=== PATIENT | female | born 1975 | race Caucasian/White ===

== ENCOUNTER 2016-11-05 14:31 | Inpatient (IN) | payer OTHER ==
[~2016-11-05] VITALS: Ht 170.2 cm; Wt 77.3 kg
[2016-11-05 14:44] LABS: BASOPHILS % (AUTO) 0.3 % (0.0-2.0); EOSINOPHILS % (AUTO) 0.5 % (1.0-6.0); HEMATOCRIT 36.7 % (36-46); HEMOGLOBIN 11.6 g/dL (12.0-16.0); LYMPHOCYTES # (AUTO) 4.7 K/uL (1.0-4.8); LYMPHOCYTES % (AUTO) 21.7 % (22.0-44.0); MEAN CORPUSCULAR HEMOGLOBIN 28.5 pg (26.0-34.0); MEAN CORPUSCULAR HGB CONC 31.6 G/dL (31.0-37.0); MEAN CORPUSCULAR VOLUME 90 fL (80-100); MONOCYTES # (AUTO) 1.1 K/uL (0.1-1.0); NEUTROPHILS # (AUTO) 15.8 K/uL (1.8-7.7); NEUTROPHILS % (AUTO) 72.5 % (40.0-70.0); PLATELET COUNT (AUTO) 233 K/uL (150-450); RED BLOOD CELL COUNT(AUTO) 4.08 MIL/uL (4.00-5.20); RED CELL DISTRIBUTION WIDTH 13.1 % (11.5-14.5); WHITE BLOOD COUNT (AUTO) 21.8 K/uL (4.5-11.0)
[2016-11-05] MEDS ORDERED: SODIUM CHLORIDE 0.9% 1,000 ML IV ONE ×3 (14:45→16:30)
[2016-11-05 15:30] LABS: INR 1.7 (0.9-1.1); PROTHROMBIN TIME 17.6 SEC (9.4-11.6)
[2016-11-05 15:33] LABS: ALANINE AMINOTRANSFERASE 120 U/L (12-78); ALBUMIN 3.3 g/dL (3.4-5.0); ANION GAP 23 mmol/L (8-16); ASPARTATE AMINOTRANSFERASE 132 U/L (15-37); BILIRUBIN,TOTAL 0.2 mg/dL (0.1-1.0); CALCIUM, TOTAL 7.6 mg/dL (8.8-10.5); CARBON DIOXIDE 11 mmol/L (22-29); CHLORIDE 89 mmol/L (98-107); CREATINE KINASE MB 43.4 ng/mL (0-5); CREATININE 1.08 mg/dL (0.60-1.30); GLOMERULAR FILTR. RATE CALC 56 mL/min (>60); POTASSIUM 3.8 mmol/L (3.5-5.1); TOTAL PROTEIN, SERUM 6.3 g/dL (6.4-8.2); UREA NITROGEN, BLOOD 14 mg/dL (7-18)
[2016-11-05 15:40] LABS: SODIUM SERUM 123 mmol/L (136-145)
[2016-11-05 15:41] LABS: CREATINE KINASE, TOTAL 2963 U/L (26-192); TROPONIN I 2.27 ng/mL (0.00-0.05)
[2016-11-05] MEDS ORDERED: ACETAMINOPHEN 325 MG TABLET PO PRN (15:45)
[2016-11-05] MEDS ORDERED: MAGNESIUM HYDROXIDE SUSPENSION 30 ML UDCUP PO PRN (15:45)
[2016-11-05] MEDS ORDERED: ONDANSETRON HCL 4 MG/2 ML VIAL IVP PRN (15:45)
[2016-11-05] MEDS ORDERED: SODIUM CHLORIDE 0.9% 1,000 ML IV SCH (16:00)
[2016-11-05 16:07] LABS: ABG A-A DIFF O2 586.7 mmHg (10-20.0); ABG BASE EXCESS -21.7 mmol/L (-2.0-3.0); ABG OXYHEMOGLOBIN 95.2 % (94.0-100.0); ABG PCO2 44 mmHg (35-45); TEMPERATURE, FAHRENHEIT, BG 91.6 FAHREN (96.0-98.6)
[2016-11-05 16:08] LABS: ABG PH 6.976 (7.350-7.450)
[2016-11-05 16:09] LABS: ALLEN TEST, BLOOD GAS Positive
[2016-11-05] MEDS ORDERED: PIPERACILLIN/TAZO 3.375 GM/D5W 50 ML IV ONE (16:15)
[2016-11-05] MEDS ORDERED: VANCOMYCIN HCL 1 GM/D5% WATER 200 ML IV ONE (16:15)
[2016-11-05 16:23] LABS: APPEARANCE,URINE CLOUDY (CLEAR); GLUCOSE, URINE (UA) NEGATIVE (NEGATIVE); KETONES,URINE NEGATIVE (NEGATIVE); LEUKOCYTE ESTERASE ,URINE NEGATIVE (NEGATIVE); OCCULT BLOOD,URINE LARGE (NEGATIVE); PROTEIN,URINE SEE CONFIRM (NEGATIVE)
[2016-11-05 16:25] LABS: ADD UA MICROSCOPIC YES
[2016-11-05] MEDS ORDERED: SODIUM BICARBONATE [ADULT] 8.4% 50 MEQ/50 ML SYRINGE IVP ONE (16:30)
[2016-11-05 16:33] LABS: SULFOSALICYLIC ACID,URINE 3+ (Negative)
[2016-11-05 16:41] LABS: REFLEX LACTIC ACID? YES YES
[2016-11-05 16:42] LABS: RENAL EPITHELIAL CELLS,URINE Few /LPF (None Seen); SQUAMOUS EPITHELIAL CELL,UR Rare /LPF (None Seen)
[2016-11-05] MEDS ORDERED: IOVERSOL 350 MG/ML 100 ML VIAL ONE (16:43)
[2016-11-05] MEDS ORDERED: SODIUM CHLORIDE 0.9% 100 ML ONE (16:43)
[2016-11-05 16:59] LABS: INR 1.2 (0.9-1.1); PROTHROMBIN TIME 12.6 SEC (9.4-11.6)
[2016-11-05] MEDS ORDERED: LACTULOSE 200 GM/300 ML RECTAL SOLUTION PR ONE (17:15)
[2016-11-05 17:39] VITALS: BP 112/70
[2016-11-05] MEDS ORDERED: SODIUM CHLORIDE 0.9% 500 ML IV ONE (17:53)
[2016-11-05 18:35] LABS: ACETAMINOPHEN 2 mcg/mL (10-30)
[2016-11-05] MEDS ORDERED: 0.9% SODIUM CHLORIDE 10 ML SYRINGE IVP PRN (19:00)
[2016-11-05 20:00] VITALS: BP 103/71
[2016-11-05] MEDS ORDERED: SODIUM BICARBONATE 150 MEQ in DEXTROSE 5%-WATER 1,000 ML IV SCH (20:15)
[2016-11-05 20:16] LABS: ABG A-A DIFF O2 658.4 mmHg (10-20.0); ABG BASE EXCESS -7.6 mmol/L (-2.0-3.0); ABG HCO3 19.9 mmol/L (22.0-26.0); ABG PH 7.536 (7.350-7.450); TEMPERATURE, FAHRENHEIT, BG 90.6 FAHREN (96.0-98.6)
[2016-11-05 20:17] LABS: ABG PCO2 19 mmHg (35-45); ALLEN TEST, BLOOD GAS POS
[2016-11-05] MEDS ORDERED: DIGOXIN 250 MCG/ML 2 ML AMP IVP ONE (20:30)
[2016-11-05] MEDS ORDERED: SODIUM CHLORIDE 0.9% 250 ML IV ONE ×3 (20:32→22:10)
[2016-11-05 20:42] LABS: HEMATOCRIT 40.8 % (36-46); HEMOGLOBIN 13.5 g/dL (12.0-16.0); MEAN CORPUSCULAR HEMOGLOBIN 28.4 pg (26.0-34.0); MEAN CORPUSCULAR VOLUME 86 fL (80-100); PLATELET COUNT (AUTO) 231 K/uL (150-450); RED BLOOD CELL COUNT(AUTO) 4.75 MIL/uL (4.00-5.20); WHITE BLOOD COUNT (AUTO) 11.6 K/uL (4.5-11.0)
[2016-11-05] MEDS: VANCOMYCIN HCL 1.25 GM in DEXTROSE 5%-WATER 250 ML IV SCH (20:50)
[2016-11-05] MEDS: DOCUSATE SODIUM 100 MG CAPSULE PO SCH (20:51)
[2016-11-05 20:52] LABS: ANION GAP 16 mmol/L (8-16); CALCIUM, TOTAL 7.8 mg/dL (8.8-10.5); CARBON DIOXIDE 18 mmol/L (22-29); CHLORIDE 101 mmol/L (98-107); CREATININE 0.64 mg/dL (0.60-1.30); GLOMERULAR FILTR. RATE CALC > 60 mL/min (>60); POTASSIUM 3.2 mmol/L (3.5-5.1); SODIUM SERUM 135 mmol/L (136-145); UREA NITROGEN, BLOOD 15 mg/dL (7-18)
[2016-11-05 20:56] LABS: PHOSPHORUS 2.1 mg/dL (2.5-4.9)
[2016-11-05 21:00] LABS: BAND NEUTROPHILS % (MANUAL) 12 % (1-5); EOSINOPHILS % (MANUAL) 1 % (1-6); LYMPHOCYTES % (MANUAL) 6 % (22-44); TOTAL CELLS COUNTED 100; WBC MORPHOLOGY TOXIC VACUOLATION
[2016-11-05 21:01] LABS: RBC MORPHOLOGY COMMENT NORMAL RBC MORPH
[2016-11-05] MEDS ORDERED: SODIUM PHOS,M-BASIC-D-BASIC 20 MMOL in DEXTROSE 5%-WATER 150 ML IV ONE (21:30)
[2016-11-05] MEDS ORDERED: MAGNESIUM SULFATE 3 GM in DEXTROSE 5%-WATER 100 ML IV ONE (21:30)
[2016-11-05] MEDS: POTASSIUM CHL 10 MEQ/WATER 50 ML IV SCH ×3 (22:27→23:45)
[2016-11-06] VITALS: BP 120/74
[2016-11-06] MEDS: PIPERACILLIN/TAZO 3.375 GM/D5W 50 ML IV SCH ×4 (00:41→18:08)
[2016-11-06 02:02] LABS: ABG A-A DIFF O2 388.4 mmHg (10-20.0); ABG BASE EXCESS -6.9 mmol/L (-2.0-3.0); ABG HCO3 20.3 mmol/L (22.0-26.0); ABG OXYHEMOGLOBIN 99.1 % (94.0-100.0); TEMPERATURE, FAHRENHEIT, BG 91.1 FAHREN (96.0-98.6)
[2016-11-06 02:04] LABS: ABG PCO2 21 mmHg (35-45); ALLEN TEST, BLOOD GAS POS
[2016-11-06 03:05] LABS: HEMOGLOBIN 14.2 g/dL (12.0-16.0); MEAN CORPUSCULAR HEMOGLOBIN 28.7 pg (26.0-34.0); MEAN CORPUSCULAR HGB CONC 33.9 G/dL (31.0-37.0); MEAN CORPUSCULAR VOLUME 85 fL (80-100); PLATELET COUNT (AUTO) 232 K/uL (150-450); RED BLOOD CELL COUNT(AUTO) 4.97 MIL/uL (4.00-5.20); RED CELL DISTRIBUTION WIDTH 12.4 % (11.5-14.5); WHITE BLOOD COUNT (AUTO) 10.7 K/uL (4.5-11.0)
[2016-11-06 03:08] LABS: ALANINE AMINOTRANSFERASE 174 U/L (12-78); ALBUMIN 3.5 g/dL (3.4-5.0); ANION GAP 14 mmol/L (8-16); ASPARTATE AMINOTRANSFERASE 202 U/L (15-37); BILIRUBIN,TOTAL 0.5 mg/dL (0.1-1.0); CALCIUM, TOTAL 8.4 mg/dL (8.8-10.5); CARBON DIOXIDE 20 mmol/L (22-29); CHLORIDE 111 mmol/L (98-107); CREATININE 0.69 mg/dL (0.60-1.30); GLOMERULAR FILTR. RATE CALC > 60 mL/min (>60); POTASSIUM 3.1 mmol/L (3.5-5.1); SODIUM SERUM 145 mmol/L (136-145); TOTAL PROTEIN, SERUM 6.7 g/dL (6.4-8.2); UREA NITROGEN, BLOOD 12 mg/dL (7-18)
[2016-11-06 03:34] LABS: BAND NEUTROPHILS % (MANUAL) 5 % (1-5); EOSINOPHILS % (MANUAL) 1 % (1-6); LYMPHOCYTES % (MANUAL) 10 % (22-44); TOTAL CELLS COUNTED 100
[2016-11-06 04:00] VITALS: BP 94/52
[2016-11-06] MEDS: POTASSIUM CHL 10 MEQ/WATER 50 ML IV SCH ×4 (04:25→06:13)
[2016-11-06] MEDS: NOREPINEPHRINE 4 MG/D5%-WATER 250 ML IV PRN (05:45)
[2016-11-06 08:00] VITALS: BP 105/58
[2016-11-06 08:13] LABS: ABG A-A DIFF O2 115.7 mmHg (10-20.0); ABG BASE EXCESS -5.4 mmol/L (-2.0-3.0); ABG OXYHEMOGLOBIN 98.7 % (94.0-100.0); ABG PCO2 33 mmHg (35-45); ABG PH 7.393 (7.350-7.450); TEMPERATURE, FAHRENHEIT, BG 98.6 FAHREN (96.0-98.6)
[2016-11-06] MEDS ORDERED: SODIUM CHLORIDE 0.9% 250 ML IV ONE (08:26)
[2016-11-06] MEDS: VANCOMYCIN HCL 1.25 GM in DEXTROSE 5%-WATER 250 ML IV SCH ×2 (08:30→20:22)
[2016-11-06 08:39] LABS: BASOPHILS # (AUTO) 0.06 K/uL (0.00-0.20); BASOPHILS % (AUTO) 0.5 % (0.0-2.0); EOSINOPHILS % (AUTO) 0.01 % (1.0-6.0); HEMATOCRIT 43.8 % (36-46); HEMOGLOBIN 14.6 g/dL (12.0-16.0); LYMPHOCYTES % (AUTO) 7.5 % (22.0-44.0); MEAN CORPUSCULAR HEMOGLOBIN 28.7 pg (26.0-34.0); MEAN CORPUSCULAR HGB CONC 33.4 G/dL (31.0-37.0); MEAN CORPUSCULAR VOLUME 86 fL (80-100); MONOCYTES # (AUTO) 0.2 K/uL (0.1-1.0); MONOCYTES % (AUTO) 1.4 % (2.0-9.0); NEUTROPHILS # (AUTO) 12.1 K/uL (1.8-7.7); NEUTROPHILS % (AUTO) 90.6 % (40.0-70.0); PLATELET COUNT (AUTO) 245 K/uL (150-450); RED CELL DISTRIBUTION WIDTH 13.7 % (11.5-14.5); WHITE BLOOD COUNT (AUTO) 13.3 K/uL (4.5-11.0)
[2016-11-06 08:41] LABS: RBC MORPHOLOGY COMMENT NORMAL RBC MORPH
[2016-11-06] MEDS: DOCUSATE SODIUM 100 MG CAPSULE PO SCH ×2 (08:48→21:37)
[2016-11-06] MEDS: PANTOPRAZOLE SODIUM 40 MG/VIAL IVP SCH (08:48)
[2016-11-06 08:55] LABS: ALANINE AMINOTRANSFERASE 176 U/L (12-78); ALBUMIN 3.6 g/dL (3.4-5.0); ANION GAP 12 mmol/L (8-16); ASPARTATE AMINOTRANSFERASE 193 U/L (15-37); BILIRUBIN,TOTAL 0.4 mg/dL (0.1-1.0); CARBON DIOXIDE 23 mmol/L (22-29); CHLORIDE 119 mmol/L (98-107); CREATININE 0.71 mg/dL (0.60-1.30); GLOMERULAR FILTR. RATE CALC > 60 mL/min (>60); POTASSIUM 4.7 mmol/L (3.5-5.1); SODIUM SERUM 154 mmol/L (136-145); TOTAL PROTEIN, SERUM 7.1 g/dL (6.4-8.2); UREA NITROGEN, BLOOD 12 mg/dL (7-18)
[2016-11-06] MEDS ORDERED: DEXTROSE 5%-WATER 1,000 ML IV SCH ×2 (09:30→17:45)
[2016-11-06] MEDS ORDERED: DESMOPRESSIN ACETATE 4 MCG/ML VIAL SQ STA (09:59)
[2016-11-06 11:46] LABS: SODIUM SERUM 153 mmol/L (136-145)
[2016-11-06 11:48] LABS: OSMOLALITY 321 mOS/kg (270-310)
[2016-11-06 12:00] VITALS: BP 98/51
[2016-11-06 13:50] LABS: OSMOLALITY 336 mOS/kg (270-310)
[2016-11-06 13:58] LABS: ALANINE AMINOTRANSFERASE 162 U/L (12-78); ALBUMIN 3.4 g/dL (3.4-5.0); ANION GAP 13 mmol/L (8-16); ASPARTATE AMINOTRANSFERASE 169 U/L (15-37); BILIRUBIN,TOTAL 0.3 mg/dL (0.1-1.0); CALCIUM, TOTAL 8.9 mg/dL (8.8-10.5); CARBON DIOXIDE 21 mmol/L (22-29); CHLORIDE 119 mmol/L (98-107); CREATININE 0.83 mg/dL (0.60-1.30); GLOMERULAR FILTR. RATE CALC > 60 mL/min (>60); PHOSPHORUS 2.6 mg/dL (2.5-4.9); POTASSIUM 3.7 mmol/L (3.5-5.1); SODIUM SERUM 153 mmol/L (136-145); TOTAL PROTEIN, SERUM 6.8 g/dL (6.4-8.2); UREA NITROGEN, BLOOD 11 mg/dL (7-18)
[2016-11-06 16:00] VITALS: BP 111/60
[2016-11-06 20:00] VITALS: BP 110/52
[2016-11-06 20:06] LABS: ABG A-A DIFF O2 188.6 mmHg (10-20.0); ABG BASE EXCESS -5.4 mmol/L (-2.0-3.0); ABG HCO3 21.1 mmol/L (22.0-26.0); ABG OXYHEMOGLOBIN 97.9 % (94.0-100.0); ABG PCO2 26 mmHg (35-45); ABG PH 7.475 (7.350-7.450); TEMPERATURE, FAHRENHEIT, BG 91.4 FAHREN (96.0-98.6)
[2016-11-06 20:09] LABS: ALLEN TEST, BLOOD GAS POS
[2016-11-06 20:35] LABS: ALANINE AMINOTRANSFERASE 162 U/L (12-78); ALBUMIN 3.1 g/dL (3.4-5.0); ANION GAP 15 mmol/L (8-16); ASPARTATE AMINOTRANSFERASE 154 U/L (15-37); BILIRUBIN,TOTAL 0.4 mg/dL (0.1-1.0); CALCIUM, TOTAL 8.4 mg/dL (8.8-10.5); CARBON DIOXIDE 20 mmol/L (22-29); CHLORIDE 119 mmol/L (98-107); CREATININE 0.78 mg/dL (0.60-1.30); GLOMERULAR FILTR. RATE CALC > 60 mL/min (>60); PHOSPHORUS 1.9 mg/dL (2.5-4.9); SODIUM SERUM 154 mmol/L (136-145); TOTAL PROTEIN, SERUM 6.5 g/dL (6.4-8.2); UREA NITROGEN, BLOOD 14 mg/dL (7-18)
[2016-11-06] MEDS ORDERED: POTASSIUM PHOS,M-BASIC-D-BASIC 20 MEQ in DEXTROSE 5%-WATER 100 ML IV ONE (22:00)
[2016-11-06] MEDS: DEXTROSE 5%-WATER 1,000 ML IV SCH (22:26)
[2016-11-07] VITALS: BP 114/50
[2016-11-07] MEDS: PIPERACILLIN/TAZO 3.375 GM/D5W 50 ML IV SCH ×4 (00:23→18:52)
[2016-11-07 02:09] LABS: ABG A-A DIFF O2 130.7 mmHg (10-20.0); ABG BASE EXCESS -7.9 mmol/L (-2.0-3.0); ABG HCO3 18.8 mmol/L (22.0-26.0); ABG PCO2 32 mmHg (35-45); ABG PH 7.357 (7.350-7.450); ALLEN TEST, BLOOD GAS POS
[2016-11-07] MEDS ORDERED: POTASSIUM CHL 10 MEQ/WATER 50 ML IV PRN (03:00)
[2016-11-07 04:00] VITALS: BP 149/63
[2016-11-07] MEDS ORDERED: SODIUM CHLORIDE 0.9% 250 ML IV ONE (05:22)
[2016-11-07 05:44] LABS: BASOPHILS # (AUTO) 0.01 K/uL (0.00-0.20); BASOPHILS % (AUTO) 0.1 % (0.0-2.0); EOSINOPHILS # (AUTO) 0.16 K/uL (0.00-0.70); EOSINOPHILS % (AUTO) 1.27 % (1.0-6.0); HEMATOCRIT 39.2 % (36-46); LYMPHOCYTES # (AUTO) 0.9 K/uL (1.0-4.8); LYMPHOCYTES % (AUTO) 7.2 % (22.0-44.0); MEAN CORPUSCULAR HEMOGLOBIN 28.8 pg (26.0-34.0); MEAN CORPUSCULAR HGB CONC 33.1 G/dL (31.0-37.0); MEAN CORPUSCULAR VOLUME 87 fL (80-100); MONOCYTES # (AUTO) 0.4 K/uL (0.1-1.0); MONOCYTES % (AUTO) 2.8 % (2.0-9.0); NEUTROPHILS # (AUTO) 11.1 K/uL (1.8-7.7); PLATELET COUNT (AUTO) 196 K/uL (150-450); RED BLOOD CELL COUNT(AUTO) 4.51 MIL/uL (4.00-5.20); RED CELL DISTRIBUTION WIDTH 13.8 % (11.5-14.5); WHITE BLOOD COUNT (AUTO) 12.6 K/uL (4.5-11.0)
[2016-11-07 05:53] LABS: NEUTROPHILS % (AUTO) 88.6 % (40.0-70.0)
[2016-11-07 06:08] LABS: CREATININE 1.13 mg/dL (0.60-1.30); MAGNESIUM 2.2 mg/dL (1.80-2.40); PHOSPHORUS 5.4 mg/dL (2.5-4.9)
[2016-11-07] MEDS: POTASSIUM CHL 10 MEQ/WATER 50 ML IV SCH ×4 (08:51→11:52)
[2016-11-07] MEDS: DEXTROSE 5%-WATER 1,000 ML IV SCH ×2 (08:53→20:48)
[2016-11-07] MEDS: DOCUSATE SODIUM 100 MG CAPSULE PO SCH ×2 (09:00→20:49)
[2016-11-07] MEDS: PANTOPRAZOLE SODIUM 40 MG/VIAL IVP SCH (09:17)
[2016-11-07] MEDS: VANCOMYCIN HCL 1.25 GM in DEXTROSE 5%-WATER 250 ML IV SCH ×2 (09:20→20:49)
[2016-11-07] MEDS: NOREPINEPHRINE 4 MG/D5%-WATER 250 ML IV PRN (10:48)
[2016-11-07 10:52] VITALS: BP 120/54
[2016-11-07 12:00] VITALS: BP 116/56
[2016-11-07 14:25] LABS: CALCIUM, TOTAL 7.6 mg/dL (8.8-10.5); CREATININE 1.22 mg/dL (0.60-1.30); POTASSIUM 3.7 mmol/L (3.5-5.1)
[2016-11-07 16:00] VITALS: BP 122/55
[2016-11-07 20:00] VITALS: BP 103/52
[2016-11-07 20:45] LABS: CALCIUM, TOTAL 7.9 mg/dL (8.8-10.5); CREATININE 1.32 mg/dL (0.60-1.30); POTASSIUM 3.7 mmol/L (3.5-5.1)
[2016-11-08] VITALS: BP 109/55
[2016-11-08] MEDS: PIPERACILLIN/TAZO 3.375 GM/D5W 50 ML IV SCH ×5 (00:40→23:58)
[2016-11-08] MEDS ORDERED: SODIUM CHLORIDE 0.9% 250 ML IV ONE ×2 (03:45→19:49)
[2016-11-08 04:00] VITALS: BP 114/79
[2016-11-08] MEDS: DEXTROSE 5%-WATER 1,000 ML IV SCH (06:43)
[2016-11-08 06:51] LABS: CALCIUM, TOTAL 8.2 mg/dL (8.8-10.5); CREATININE 1.4 mg/dL (0.60-1.30); POTASSIUM 3.3 mmol/L (3.5-5.1)
[2016-11-08 08:00] VITALS: BP 120/54
[2016-11-08] MEDS ORDERED: VANCOMYCIN HCL 1 GM/D5% WATER 200 ML IV SCH (08:00)
[2016-11-08] MEDS: DOCUSATE SODIUM 100 MG CAPSULE PO SCH ×2 (08:05→21:09)
[2016-11-08] MEDS: VANCOMYCIN HCL 1.25 GM in DEXTROSE 5%-WATER 250 ML IV SCH (09:31)
[2016-11-08] MEDS: PANTOPRAZOLE SODIUM 40 MG/VIAL IVP SCH (09:32)
[2016-11-08 12:00] VITALS: BP 103/50
[2016-11-08] MEDS ORDERED: DESMOPRESSIN ACETATE 4 MCG/ML VIAL SQ ONE (15:15)
[2016-11-08 16:00] VITALS: BP 102/53
[2016-11-08] MEDS ORDERED: SODIUM CHLORIDE 0.9% 500 ML IV ONE (19:49)
[2016-11-08] MEDS: NOREPINEPHRINE 4 MG/D5%-WATER 250 ML IV PRN (19:53)
[2016-11-08 20:00] VITALS: BP 119/73
[2016-11-08] MEDS: DESMOPRESSIN ACETATE 4 MCG/ML VIAL IVP SCH (21:10)
[2016-11-09] VITALS: BP 163/77
[2016-11-09] MEDS: DEXTROSE 5%-WATER 1,000 ML IV SCH (01:59)
[2016-11-09 04:00] VITALS: BP 135/54
[2016-11-09] MEDS: PIPERACILLIN/TAZO 3.375 GM/D5W 50 ML IV SCH ×3 (05:33→18:30)
[2016-11-09 06:28] LABS: CALCIUM, TOTAL 8.5 mg/dL (8.8-10.5); CREATININE 1.64 mg/dL (0.60-1.30); POTASSIUM 3.5 mmol/L (3.5-5.1)
[2016-11-09 08:00] VITALS: BP 105/91
[2016-11-09] MEDS: DOCUSATE SODIUM 100 MG CAPSULE PO SCH ×2 (08:15→21:00)
[2016-11-09] MEDS: VANCOMYCIN HCL 1 GM/D5% WATER 200 ML IV SCH (08:26)
[2016-11-09] MEDS: DESMOPRESSIN ACETATE 4 MCG/ML VIAL IVP SCH (08:27)
[2016-11-09] MEDS: PANTOPRAZOLE SODIUM 40 MG/VIAL IVP SCH (08:27)
[2016-11-09 10:06] LABS: CALCIUM, TOTAL 8.3 mg/dL (8.8-10.5); CREATININE 1.77 mg/dL (0.60-1.30); POTASSIUM 3.6 mmol/L (3.5-5.1)
[2016-11-09 12:00] VITALS: BP 101/44
[2016-11-09] MEDS ORDERED: LIDOCAINE HCL 2% 30 ML JELLY TP ONE (12:00)
[2016-11-09] MEDS ORDERED: LIDOCAINE HCL 4% 50 ML SOLUTION TP ONE (12:00)
[2016-11-09 16:00] VITALS: BP 128/59
[2016-11-09] MEDS ORDERED: DESMOPRESSIN ACETATE 4 MCG/ML VIAL IVP SCH (16:00)
[2016-11-09] MEDS ORDERED: MAGNESIUM SULFATE 4 GM/WATER 100 ML IV PRN (17:45)
[2016-11-09] MEDS ORDERED: MAGNESIUM SULFATE 2 GM in DEXTROSE 5%-WATER 50 ML IV PRN (17:45)
[2016-11-09] MEDS ORDERED: METOPROLOL TARTRATE 5 MG/5 ML VIAL IVP ONE (18:15)
[2016-11-09 18:30] LABS: BASOPHILS % (AUTO) 0.7 % (0.0-2.0); EOSINOPHILS % (AUTO) 6.2 % (1.0-6.0); HEMATOCRIT 38.6 % (36-46); HEMOGLOBIN 12.4 g/dL (12.0-16.0); LYMPHOCYTES # (AUTO) 1.8 K/uL (1.0-4.8); LYMPHOCYTES % (AUTO) 19.8 % (22.0-44.0); MEAN CORPUSCULAR HEMOGLOBIN 27.9 pg (26.0-34.0); MEAN CORPUSCULAR HGB CONC 32.2 G/dL (31.0-37.0); MEAN CORPUSCULAR VOLUME 87 fL (80-100); MONOCYTES # (AUTO) 0.5 K/uL (0.1-1.0); MONOCYTES % (AUTO) 5.9 % (2.0-9.0); NEUTROPHILS # (AUTO) 6.3 K/uL (1.8-7.7); NEUTROPHILS % (AUTO) 67.4 % (40.0-70.0); PLATELET COUNT (AUTO) 193 K/uL (150-450); RED BLOOD CELL COUNT(AUTO) 4.45 MIL/uL (4.00-5.20); WHITE BLOOD COUNT (AUTO) 9.3 K/uL (4.5-11.0)
[2016-11-09 19:03] LABS: ALBUMIN 2.4 g/dL (3.4-5.0); BILIRUBIN,TOTAL 0.7 mg/dL (0.1-1.0); CALCIUM, TOTAL 8.5 mg/dL (8.8-10.5); CREATININE 1.72 mg/dL (0.60-1.30); POTASSIUM 3.6 mmol/L (3.5-5.1); TOTAL PROTEIN, SERUM 6.7 g/dL (6.4-8.2)
[2016-11-09] MEDS ORDERED: SODIUM CHLORIDE 0.9% 500 ML IV ONE ×2 (19:03→19:15)
[2016-11-09 19:05] LABS: BILIRUBIN,DIRECT 0.3 mg/dL (0.00-0.20)
[2016-11-09 20:00] VITALS: BP 101/45
[2016-11-09 20:43] LABS: PHOSPHORUS 5.3 mg/dL (2.5-4.9)
[2016-11-09] MEDS ORDERED: DEXTROSE 50%-WATER 25 GM/50 ML SYRINGE IVP ONE (20:45)
[2016-11-09] MEDS ORDERED: INSULIN REGULAR, HUMAN 100 UNITS/ML IVP ONE (20:45)
[2016-11-09] MEDS ORDERED: VECURONIUM BROMIDE 10 MG/VIAL IVP ONE (21:15)
[2016-11-09] MEDS ORDERED: LEVOTHYROXINE SODIUM 100 MCG VIAL IVP ONE (21:30)
[2016-11-09] MEDS ORDERED: NALOXONE HCL 1 MG/ML 2 ML SYG IVP ONE (21:30)
[2016-11-09] MEDS: SODIUM CHLORIDE 0.45% 1,000 ML IV SCH (22:19)
[2016-11-09] MEDS: ACETYLCYSTEINE 20% 200 MG/ML 4 ML NEB SOLUTION NEB SCH (22:33)
[2016-11-09] MEDS: ALBUTEROL SULFATE 2.5 MG/0.5 ML NEB SOLUTION NEB SCH (22:33)
[2016-11-09] MEDS: IPRATROPIUM BROMIDE 0.5 MG/2.5 ML NEB SOLUTION NEB SCH (22:33)
[2016-11-09 22:39] LABS: EOSINOPHILS % (AUTO) 5.2 % (1.0-6.0); HEMATOCRIT 33.1 % (36-46); HEMOGLOBIN 10.9 g/dL (12.0-16.0); LYMPHOCYTES # (AUTO) 1.1 K/uL (1.0-4.8); LYMPHOCYTES % (AUTO) 15.1 % (22.0-44.0); MEAN CORPUSCULAR HEMOGLOBIN 28.7 pg (26.0-34.0); MEAN CORPUSCULAR HGB CONC 32.9 G/dL (31.0-37.0); MEAN CORPUSCULAR VOLUME 87 fL (80-100); MONOCYTES # (AUTO) 0.2 K/uL (0.1-1.0); MONOCYTES % (AUTO) 2.3 % (2.0-9.0); NEUTROPHILS # (AUTO) 5.5 K/uL (1.8-7.7); NEUTROPHILS % (AUTO) 77.4 % (40.0-70.0); PLATELET COUNT (AUTO) 148 K/uL (150-450); RED BLOOD CELL COUNT(AUTO) 3.79 MIL/uL (4.00-5.20); RED CELL DISTRIBUTION WIDTH 14.2 % (11.5-14.5); WHITE BLOOD COUNT (AUTO) 7.1 K/uL (4.5-11.0)
[2016-11-09 22:49] LABS: INR 1.1 (0.9-1.1); PROTHROMBIN TIME 11.3 SEC (9.4-11.6)
[2016-11-09 23:04] LABS: BILIRUBIN,TOTAL 0.9 mg/dL (0.1-1.0); CREATININE 1.93 mg/dL (0.60-1.30); POTASSIUM 3.3 mmol/L (3.5-5.1); TOTAL PROTEIN, SERUM 5.6 g/dL (6.4-8.2)
[2016-11-09] MEDS: LEVOTHYROXINE SODIUM 200 MCG in SODIUM CHLORIDE 0.9% 500 ML IV SCH (23:17)
[2016-11-09] MEDS: POTASSIUM CHL 10 MEQ/WATER 50 ML IV PRN ×2 (23:26→23:53)
[2016-11-10] VITALS: BP 130/58
[2016-11-10] MEDS: PIPERACILLIN/TAZO 3.375 GM/D5W 50 ML IV SCH ×2 (00:04→05:29)
[2016-11-10 00:07] LABS: ABG A-A DIFF O2 306.9 mmHg (10-20.0); ABG BASE EXCESS -6.1 mmol/L (-2.0-3.0); ABG HCO3 20.3 mmol/L (22.0-26.0); ABG OXYHEMOGLOBIN 98.6 % (94.0-100.0); ABG PCO2 33 mmHg (35-45); ABG PH 7.377 (7.350-7.450)
[2016-11-10 00:08] LABS: ALLEN TEST, BLOOD GAS POS
[2016-11-10 00:09] LABS: INSIPIRATORY PRESSURE, BG 28 cm H2O
[2016-11-10] MEDS: ALBUTEROL SULFATE 2.5 MG/0.5 ML NEB SOLUTION NEB SCH ×8 (01:10→22:43)
[2016-11-10] MEDS: ACETYLCYSTEINE 20% 200 MG/ML 4 ML NEB SOLUTION NEB SCH ×8 (01:10→22:43)
[2016-11-10] MEDS: IPRATROPIUM BROMIDE 0.5 MG/2.5 ML NEB SOLUTION NEB SCH ×8 (01:10→22:43)
[2016-11-10 03:19] LABS: TEMPERATURE, FAHRENHEIT, BG 97.7 FAHREN (96.0-98.6)
[2016-11-10 03:22] LABS: ABG A-A DIFF O2 191.1 mmHg (10-20.0); ABG BASE EXCESS -13.6 mmol/L (-2.0-3.0); ABG HCO3 14.8 mmol/L (22.0-26.0); ABG OXYHEMOGLOBIN 98.5 % (94.0-100.0); ABG PH 7.378 (7.350-7.450)
[2016-11-10 03:24] LABS: MAGNESIUM 1.7 mg/dL (1.80-2.40); PHOSPHORUS 5.2 mg/dL (2.5-4.9)
[2016-11-10 03:26] LABS: ABG PCO2 20 mmHg (35-45)
[2016-11-10 03:27] LABS: INSIPIRATORY PRESSURE, BG 28 cm H2O
[2016-11-10 03:27] LABS: ALBUMIN 2.2 g/dL (3.4-5.0); BILIRUBIN,TOTAL 1.6 mg/dL (0.1-1.0); CALCIUM, TOTAL 8.2 mg/dL (8.8-10.5); CREATININE 1.82 mg/dL (0.60-1.30); PHOSPHORUS 5.1 mg/dL (2.5-4.9); POTASSIUM 4.1 mmol/L (3.5-5.1); TOTAL PROTEIN, SERUM 6.4 g/dL (6.4-8.2)
[2016-11-10 03:42] LABS: LACTIC ACID 0.9 mmol/L (0.4-2.0)
[2016-11-10] MEDS: SODIUM CHLORIDE 0.45% 1,000 ML IV SCH ×3 (03:46→19:47)
[2016-11-10 03:48] LABS: CREATINE KINASE MB 16.9 ng/mL (0-5)
[2016-11-10 03:50] LABS: HEMATOCRIT 35.5 % (36-46); HEMOGLOBIN 11.7 g/dL (12.0-16.0); MEAN CORPUSCULAR HEMOGLOBIN 28.7 pg (26.0-34.0); MEAN CORPUSCULAR VOLUME 87 fL (80-100); RED BLOOD CELL COUNT(AUTO) 4.06 MIL/uL (4.00-5.20); WHITE BLOOD COUNT (AUTO) 8.9 K/uL (4.5-11.0)
[2016-11-10 03:51] LABS: EOSINOPHILS # (AUTO) 0.03 K/uL (0.00-0.70); EOSINOPHILS % (AUTO) 0.28 % (1.0-6.0); LYMPHOCYTES # (AUTO) 0.5 K/uL (1.0-4.8); LYMPHOCYTES % (AUTO) 5.8 % (22.0-44.0); MEAN CORPUSCULAR HGB CONC 32.9 G/dL (31.0-37.0); MONOCYTES # (AUTO) 0.2 K/uL (0.1-1.0); MONOCYTES % (AUTO) 2.1 % (2.0-9.0); NEUTROPHILS # (AUTO) 8.1 K/uL (1.8-7.7); PLATELET COUNT (AUTO) 155 K/uL (150-450); RED CELL DISTRIBUTION WIDTH 14.4 % (11.5-14.5)
[2016-11-10 04:00] VITALS: BP 161/76
[2016-11-10] MEDS ORDERED: MAGNESIUM SULFATE 2 GM in DEXTROSE 5%-WATER 50 ML IV ONE (04:30)
[2016-11-10 05:11] LABS: ABG A-A DIFF O2 88.6 mmHg (10-20.0); ABG BASE EXCESS -8.9 mmol/L (-2.0-3.0); ABG HCO3 18.1 mmol/L (22.0-26.0); ABG OXYHEMOGLOBIN 98.4 % (94.0-100.0); ABG PCO2 32 mmHg (35-45); ABG PH 7.342 (7.350-7.450); TEMPERATURE, FAHRENHEIT, BG 97.8 FAHREN (96.0-98.6)
[2016-11-10 05:12] LABS: INSIPIRATORY PRESSURE, BG 28 cm H2O
[2016-11-10] MEDS ORDERED: SODIUM BICARBONATE [ADULT] 8.4% 50 MEQ/50 ML SYRINGE IVP ONE (05:30)
[2016-11-10 06:18] LABS: NEUTROPHILS % (AUTO) 91.8 % (40.0-70.0)
[2016-11-10 06:40] LABS: PROTHROMBIN TIME 10.9 SEC (9.4-11.6)
[2016-11-10 06:43] LABS: EOSINOPHILS % (AUTO) 0 % (1.0-6.0); HEMOGLOBIN 11.1 g/dL (12.0-16.0); LYMPHOCYTES # (AUTO) 0.3 K/uL (1.0-4.8); LYMPHOCYTES % (AUTO) 3.5 % (22.0-44.0); MEAN CORPUSCULAR HEMOGLOBIN 28.5 pg (26.0-34.0); MEAN CORPUSCULAR HGB CONC 32.8 G/dL (31.0-37.0); MEAN CORPUSCULAR VOLUME 87 fL (80-100); MONOCYTES # (AUTO) 0.1 K/uL (0.1-1.0); MONOCYTES % (AUTO) 1.6 % (2.0-9.0); NEUTROPHILS # (AUTO) 8.3 K/uL (1.8-7.7); PLATELET COUNT (AUTO) 152 K/uL (150-450); RED CELL DISTRIBUTION WIDTH 13.8 % (11.5-14.5); WHITE BLOOD COUNT (AUTO) 8.8 K/uL (4.5-11.0)
[2016-11-10] MEDS ORDERED: FUROSEMIDE 20 MG/2 ML VIAL IVP ONE ×2 (06:45→15:45)
[2016-11-10 07:02] LABS: NEUTROPHILS % (AUTO) 94.9 % (40.0-70.0)
[2016-11-10 07:14] LABS: ALBUMIN 2.1 g/dL (3.4-5.0); BILIRUBIN,TOTAL 1.2 mg/dL (0.1-1.0); CALCIUM, TOTAL 8.1 mg/dL (8.8-10.5); CREATINE KINASE MB 14.6 ng/mL (0-5); CREATININE 1.77 mg/dL (0.60-1.30); PHOSPHORUS 6.5 mg/dL (2.5-4.9); POTASSIUM 4.2 mmol/L (3.5-5.1); TOTAL PROTEIN, SERUM 6.3 g/dL (6.4-8.2)
[2016-11-10 07:21] LABS: ABG A-A DIFF O2 84.6 mmHg (10-20.0); ABG BASE EXCESS -4.5 mmol/L (-2.0-3.0); ABG HCO3 21.2 mmol/L (22.0-26.0); ABG OXYHEMOGLOBIN 98.3 % (94.0-100.0); ABG PCO2 37 mmHg (35-45); ABG PH 7.366 (7.350-7.450); TEMPERATURE, FAHRENHEIT, BG 97.8 FAHREN (96.0-98.6)
[2016-11-10 08:00] VITALS: BP 136/62
[2016-11-10] MEDS: VANCOMYCIN HCL 1 GM/D5% WATER 200 ML IV SCH (08:21)
[2016-11-10] MEDS: PANTOPRAZOLE SODIUM 40 MG/VIAL IVP SCH (08:21)
[2016-11-10] MEDS: DOCUSATE SODIUM 100 MG CAPSULE PO SCH ×2 (08:22→21:00)
[2016-11-10 08:27] LABS: APPEARANCE,URINE CLEAR (CLEAR); GLUCOSE, URINE (UA) 100 mg/dL (NEGATIVE); KETONES,URINE 15 mg/dL (NEGATIVE); LEUKOCYTE ESTERASE ,URINE NEGATIVE (NEGATIVE); PH,URINE 6.5 (5.0-8.0); PROTEIN,URINE NEGATIVE (NEGATIVE)
[2016-11-10 08:41] LABS: ABG BASE EXCESS -5.7 mmol/L (-2.0-3.0); ABG HCO3 20.3 mmol/L (22.0-26.0); ABG OXYHEMOGLOBIN 99.2 % (94.0-100.0); ABG PCO2 37 mmHg (35-45); ABG PH 7.348 (7.350-7.450); TEMPERATURE, FAHRENHEIT, BG 97.8 FAHREN (96.0-98.6)
[2016-11-10 08:50] LABS: ADD UA MICROSCOPIC YES; OCCULT BLOOD,URINE TRACE (NEGATIVE)
[2016-11-10 08:51] LABS: RBC,URINE 0-2 /HPF (0-2); WBC,URINE None Seen /HPF (0-5)
[2016-11-10 10:41] LABS: EOSINOPHILS % (AUTO) 0 % (1.0-6.0); HEMATOCRIT 34.6 % (36-46); HEMOGLOBIN 11.1 g/dL (12.0-16.0); LYMPHOCYTES # (AUTO) 0.5 K/uL (1.0-4.8); LYMPHOCYTES % (AUTO) 5.5 % (22.0-44.0); MEAN CORPUSCULAR HEMOGLOBIN 27.9 pg (26.0-34.0); MEAN CORPUSCULAR HGB CONC 32.2 G/dL (31.0-37.0); MEAN CORPUSCULAR VOLUME 87 fL (80-100); MONOCYTES # (AUTO) 0.2 K/uL (0.1-1.0); MONOCYTES % (AUTO) 2.4 % (2.0-9.0); PLATELET COUNT (AUTO) 159 K/uL (150-450); RED BLOOD CELL COUNT(AUTO) 3.99 MIL/uL (4.00-5.20); WHITE BLOOD COUNT (AUTO) 8.7 K/uL (4.5-11.0)
[2016-11-10 10:42] LABS: NEUTROPHILS % (AUTO) 92.1 % (40.0-70.0)
[2016-11-10 10:51] LABS: INR 1.1 (0.9-1.1); PROTHROMBIN TIME 11.2 SEC (9.4-11.6)
[2016-11-10 11:24] LABS: ALBUMIN 2.1 g/dL (3.4-5.0); BILIRUBIN,TOTAL 0.7 mg/dL (0.1-1.0); CALCIUM, TOTAL 8.2 mg/dL (8.8-10.5); CREATINE KINASE MB 11.6 ng/mL (0-5); CREATININE 1.87 mg/dL (0.60-1.30); MAGNESIUM 2.4 mg/dL (1.80-2.40); PHOSPHORUS 6.5 mg/dL (2.5-4.9); POTASSIUM 4.5 mmol/L (3.5-5.1); TOTAL PROTEIN, SERUM 6.5 g/dL (6.4-8.2)
[2016-11-10 12:00] VITALS: BP 165/78
[2016-11-10] MEDS ORDERED: LIDOCAINE HCL 2% 30 ML JELLY TP ONE (12:00)
[2016-11-10] MEDS: PIPERACILLIN SODIUM/TAZOBACTAM 2.25 GM in DEXTROSE 5%-WATER 50 ML IV SCH ×2 (12:20→17:51)
[2016-11-10 12:33] LABS: TEMPERATURE, FAHRENHEIT, BG 97.2 FAHREN (96.0-98.6)
[2016-11-10 12:34] LABS: ABG A-A DIFF O2 74.5 mmHg (10-20.0); ABG BASE EXCESS -5.9 mmol/L (-2.0-3.0); ABG HCO3 20.2 mmol/L (22.0-26.0); ABG OXYHEMOGLOBIN 98.8 % (94.0-100.0); ABG PCO2 36 mmHg (35-45); ABG PH 7.353 (7.350-7.450)
[2016-11-10] MEDS: INSULIN REGULAR, HUMAN 100 UNITS in SODIUM CHLORIDE 0.9% 99 ML IV PRN ×4 (12:51→20:13)
[2016-11-10 14:30] LABS: EOSINOPHILS % (AUTO) 0 % (1.0-6.0); HEMOGLOBIN 11.1 g/dL (12.0-16.0); LYMPHOCYTES # (AUTO) 0.5 K/uL (1.0-4.8); LYMPHOCYTES % (AUTO) 5.8 % (22.0-44.0); MEAN CORPUSCULAR HEMOGLOBIN 28.3 pg (26.0-34.0); MEAN CORPUSCULAR HGB CONC 32.7 G/dL (31.0-37.0); MEAN CORPUSCULAR VOLUME 87 fL (80-100); MONOCYTES # (AUTO) 0.2 K/uL (0.1-1.0); MONOCYTES % (AUTO) 2.6 % (2.0-9.0); PLATELET COUNT (AUTO) 149 K/uL (150-450); RED BLOOD CELL COUNT(AUTO) 3.93 MIL/uL (4.00-5.20); RED CELL DISTRIBUTION WIDTH 14.2 % (11.5-14.5); WHITE BLOOD COUNT (AUTO) 8.8 K/uL (4.5-11.0)
[2016-11-10 14:35] LABS: NEUTROPHILS % (AUTO) 91.6 % (40.0-70.0)
[2016-11-10 14:41] LABS: MAGNESIUM 2.4 mg/dL (1.80-2.40); PHOSPHORUS 5.5 mg/dL (2.5-4.9); PROTHROMBIN TIME 10.9 SEC (9.4-11.6)
[2016-11-10 14:43] LABS: ALBUMIN 2.1 g/dL (3.4-5.0); BILIRUBIN,TOTAL 0.5 mg/dL (0.1-1.0); CALCIUM, TOTAL 8.2 mg/dL (8.8-10.5); CREATININE 1.84 mg/dL (0.60-1.30); POTASSIUM 4.2 mmol/L (3.5-5.1); TOTAL PROTEIN, SERUM 6.7 g/dL (6.4-8.2)
[2016-11-10 16:00] VITALS: BP 137/61
[2016-11-10] MEDS ORDERED: DEXTROSE 50%-WATER 25 GM/50 ML SYRINGE IVP PRN (16:15)
[2016-11-10] MEDS ORDERED: SODIUM CHLORIDE 0.9% 250 ML IV ONE (17:41)
[2016-11-10 17:46] LABS: ABG A-A DIFF O2 122.5 mmHg (10-20.0); ABG BASE EXCESS -5.4 mmol/L (-2.0-3.0); ABG HCO3 20.9 mmol/L (22.0-26.0); ABG OXYHEMOGLOBIN 97.7 % (94.0-100.0); ABG PCO2 28 mmHg (35-45); ABG PH 7.442 (7.350-7.450); TEMPERATURE, FAHRENHEIT, BG 97.6 FAHREN (96.0-98.6)
[2016-11-10 17:47] LABS: ALLEN TEST, BLOOD GAS Positive
[2016-11-10 18:23] LABS: EOSINOPHILS % (AUTO) 0 % (1.0-6.0); HEMATOCRIT 31.6 % (36-46); HEMOGLOBIN 10.3 g/dL (12.0-16.0); LYMPHOCYTES # (AUTO) 0.5 K/uL (1.0-4.8); LYMPHOCYTES % (AUTO) 5.3 % (22.0-44.0); MEAN CORPUSCULAR HGB CONC 32.6 G/dL (31.0-37.0); MEAN CORPUSCULAR VOLUME 86 fL (80-100); MONOCYTES # (AUTO) 0.3 K/uL (0.1-1.0); MONOCYTES % (AUTO) 3.6 % (2.0-9.0); NEUTROPHILS # (AUTO) 8.2 K/uL (1.8-7.7); RED BLOOD CELL COUNT(AUTO) 3.68 MIL/uL (4.00-5.20); RED CELL DISTRIBUTION WIDTH 14.4 % (11.5-14.5)
[2016-11-10 18:24] LABS: NEUTROPHILS % (AUTO) 91.1 % (40.0-70.0)
[2016-11-10] MEDS: LEVOTHYROXINE SODIUM 200 MCG in SODIUM CHLORIDE 0.9% 500 ML IV SCH (18:26)
[2016-11-10 18:35] LABS: INR 1.1 (0.9-1.1); PROTHROMBIN TIME 11.4 SEC (9.4-11.6)
[2016-11-10 18:43] LABS: BILIRUBIN,TOTAL 0.4 mg/dL (0.1-1.0); CALCIUM, TOTAL 8.3 mg/dL (8.8-10.5); CREATININE 1.99 mg/dL (0.60-1.30); MAGNESIUM 2.2 mg/dL (1.80-2.40); PHOSPHORUS 2.4 mg/dL (2.5-4.9); TOTAL PROTEIN, SERUM 6.3 g/dL (6.4-8.2)
[2016-11-10 18:47] LABS: POTASSIUM 2.7 mmol/L (3.5-5.1)
[2016-11-10] MEDS ORDERED: VASOPRESSIN 100 UNITS in DEXTROSE 5%-WATER 245 ML IV PRN (19:00)
[2016-11-10 19:05] LABS: PLATELET COUNT (AUTO) 149 K/uL (150-450)
[2016-11-10] MEDS: POTASSIUM CHL 10 MEQ/WATER 50 ML IV PRN ×7 (19:23→23:59)
[2016-11-10 20:00] VITALS: BP 129/56
[2016-11-10 20:23] LABS: ABG A-A DIFF O2 229.7 mmHg (10-20.0); ABG BASE EXCESS -4.5 mmol/L (-2.0-3.0); ABG HCO3 21.5 mmol/L (22.0-26.0); ABG OXYHEMOGLOBIN 98.8 % (94.0-100.0); ABG PCO2 30 mmHg (35-45); ABG PH 7.434 (7.350-7.450); TEMPERATURE, FAHRENHEIT, BG 97.5 FAHREN (96.0-98.6)
[2016-11-10] MEDS ORDERED: SODIUM CHLORIDE 0.9% 500 ML IV ONE (20:36)
[2016-11-10 22:15] LABS: EOSINOPHILS % (AUTO) 0.02 % (1.0-6.0); HEMOGLOBIN 9.8 g/dL (12.0-16.0); LYMPHOCYTES # (AUTO) 0.3 K/uL (1.0-4.8); LYMPHOCYTES % (AUTO) 3.9 % (22.0-44.0); MEAN CORPUSCULAR HEMOGLOBIN 29.1 pg (26.0-34.0); MEAN CORPUSCULAR HGB CONC 33.8 G/dL (31.0-37.0); MEAN CORPUSCULAR VOLUME 86 fL (80-100); MONOCYTES # (AUTO) 0.4 K/uL (0.1-1.0); MONOCYTES % (AUTO) 4.1 % (2.0-9.0); NEUTROPHILS # (AUTO) 7.9 K/uL (1.8-7.7); RED BLOOD CELL COUNT(AUTO) 3.37 MIL/uL (4.00-5.20); WHITE BLOOD COUNT (AUTO) 8.6 K/uL (4.5-11.0)
[2016-11-10 22:16] LABS: NEUTROPHILS % (AUTO) 91.9 % (40.0-70.0)
[2016-11-10 22:25] LABS: INR 1.1 (0.9-1.1); PROTHROMBIN TIME 11.4 SEC (9.4-11.6)
[2016-11-10 22:26] LABS: BILIRUBIN,TOTAL 0.3 mg/dL (0.1-1.0); CALCIUM, TOTAL 8.5 mg/dL (8.8-10.5); CREATININE 1.9 mg/dL (0.60-1.30); MAGNESIUM 2.1 mg/dL (1.80-2.40); PHOSPHORUS 2.3 mg/dL (2.5-4.9); POTASSIUM 3.3 mmol/L (3.5-5.1); TOTAL PROTEIN, SERUM 6.2 g/dL (6.4-8.2)
[2016-11-10 22:29] LABS: PLATELET COUNT (AUTO) 156 K/uL (150-450)
[2016-11-10 23:11] LABS: ABG BASE EXCESS -3.6 mmol/L (-2.0-3.0); ABG OXYHEMOGLOBIN 97.8 % (94.0-100.0); ABG PCO2 33 mmHg (35-45); ABG PH 7.421 (7.350-7.450); TEMPERATURE, FAHRENHEIT, BG 97.7 FAHREN (96.0-98.6)
[2016-11-10 23:33] LABS: ABG A-A DIFF O2 242.5 mmHg (10-20.0); ABG HCO3 22.5 mmol/L (22.0-26.0); ABG OXYHEMOGLOBIN 98.9 % (94.0-100.0); ABG PCO2 32 mmHg (35-45); ABG PH 7.434 (7.350-7.450); TEMPERATURE, FAHRENHEIT, BG 97.6 FAHREN (96.0-98.6)
[2016-11-11] VITALS: BP 144/70
[2016-11-11 00:12] LABS: GLUCOSE COMMENT 1 Received Meds; GLUCOSE,POINT OF CARE 341 MG/DL (70-110)
[2016-11-11 00:12] LABS: GLUCOSE COMMENT 1 Received Meds; GLUCOSE,POINT OF CARE 350 MG/DL (70-110)
[2016-11-11 00:12] LABS: GLUCOSE COMMENT 1 Received Meds; GLUCOSE,POINT OF CARE 340 MG/DL (70-110)
[2016-11-11 00:12] LABS: GLUCOSE COMMENT 1 Received Meds; GLUCOSE,POINT OF CARE 336 MG/DL (70-110)
[2016-11-11 00:16] LABS: GLUCOSE COMMENT 1 Received Meds; GLUCOSE,POINT OF CARE 336 MG/DL (70-110)
[2016-11-11] MEDS: PIPERACILLIN SODIUM/TAZOBACTAM 2.25 GM in DEXTROSE 5%-WATER 50 ML IV SCH ×3 (00:40→11:36)
[2016-11-11 01:12] LABS: GLUCOSE,POINT OF CARE 300 MG/DL (70-110)
[2016-11-11] MEDS: IPRATROPIUM BROMIDE 0.5 MG/2.5 ML NEB SOLUTION NEB SCH ×3 (01:14→07:13)
[2016-11-11] MEDS: ALBUTEROL SULFATE 2.5 MG/0.5 ML NEB SOLUTION NEB SCH ×3 (01:14→07:13)
[2016-11-11] MEDS: ACETYLCYSTEINE 20% 200 MG/ML 4 ML NEB SOLUTION NEB SCH ×3 (01:14→07:13)
[2016-11-11 02:25] LABS: EOSINOPHILS % (AUTO) 0 % (1.0-6.0); HEMATOCRIT 30.2 % (36-46); HEMOGLOBIN 9.8 g/dL (12.0-16.0); INR 1.1 (0.9-1.1); LYMPHOCYTES # (AUTO) 0.5 K/uL (1.0-4.8); LYMPHOCYTES % (AUTO) 5.1 % (22.0-44.0); MEAN CORPUSCULAR HEMOGLOBIN 27.9 pg (26.0-34.0); MEAN CORPUSCULAR HGB CONC 32.5 G/dL (31.0-37.0); MEAN CORPUSCULAR VOLUME 86 fL (80-100); MONOCYTES # (AUTO) 0.4 K/uL (0.1-1.0); MONOCYTES % (AUTO) 4.5 % (2.0-9.0); PROTHROMBIN TIME 11.5 SEC (9.4-11.6); RED BLOOD CELL COUNT(AUTO) 3.52 MIL/uL (4.00-5.20); RED CELL DISTRIBUTION WIDTH 14.2 % (11.5-14.5); WHITE BLOOD COUNT (AUTO) 8.8 K/uL (4.5-11.0)
[2016-11-11 02:27] LABS: NEUTROPHILS % (AUTO) 90.4 % (40.0-70.0)
[2016-11-11 02:34] LABS: ALBUMIN 2.1 g/dL (3.4-5.0); BILIRUBIN,TOTAL 0.4 mg/dL (0.1-1.0); CALCIUM, TOTAL 8.7 mg/dL (8.8-10.5); CREATININE 1.83 mg/dL (0.60-1.30); PHOSPHORUS 2.8 mg/dL (2.5-4.9); POTASSIUM 3.3 mmol/L (3.5-5.1); TOTAL PROTEIN, SERUM 6.5 g/dL (6.4-8.2)
[2016-11-11 02:42] LABS: GLUCOSE,POINT OF CARE 219 MG/DL (70-110)
[2016-11-11 02:42] LABS: GLUCOSE,POINT OF CARE 234 MG/DL (70-110)
[2016-11-11 02:51] LABS: GLUCOSE,POINT OF CARE 238 MG/DL (70-110)
[2016-11-11 02:53] LABS: PLATELET COUNT (AUTO) 145 K/uL (150-450)
[2016-11-11] MEDS: POTASSIUM CHL 10 MEQ/WATER 50 ML IV PRN ×6 (02:56→14:30)
[2016-11-11] MEDS: SODIUM CHLORIDE 0.45% 1,000 ML IV SCH ×2 (03:00→08:53)
[2016-11-11 03:08] LABS: ABG A-A DIFF O2 98.7 mmHg (10-20.0); ABG BASE EXCESS -5.6 mmol/L (-2.0-3.0); ABG HCO3 20.7 mmol/L (22.0-26.0); ABG OXYHEMOGLOBIN 98.2 % (94.0-100.0); ABG PCO2 28 mmHg (35-45); ABG PH 7.435 (7.350-7.450); TEMPERATURE, FAHRENHEIT, BG 97.7 FAHREN (96.0-98.6)
[2016-11-11 03:21] LABS: GLUCOSE COMMENT 1 Received Meds; GLUCOSE,POINT OF CARE 280 MG/DL (70-110)
[2016-11-11 03:31] LABS: ABG A-A DIFF O2 194.7 mmHg (10-20.0); ABG BASE EXCESS -3.1 mmol/L (-2.0-3.0); ABG HCO3 22.6 mmol/L (22.0-26.0); ABG OXYHEMOGLOBIN 98.9 % (94.0-100.0); ABG PCO2 30 mmHg (35-45); ABG PH 7.458 (7.350-7.450); TEMPERATURE, FAHRENHEIT, BG 97.6 FAHREN (96.0-98.6)
[2016-11-11 04:00] VITALS: BP 178/122
[2016-11-11 05:40] LABS: INR 1.1 (0.9-1.1); PROTHROMBIN TIME 11.5 SEC (9.4-11.6)
[2016-11-11 07:15] LABS: EOSINOPHILS % (AUTO) 0 % (1.0-6.0); HEMATOCRIT 29.3 % (36-46); HEMOGLOBIN 9.6 g/dL (12.0-16.0); LYMPHOCYTES # (AUTO) 0.4 K/uL (1.0-4.8); MEAN CORPUSCULAR HEMOGLOBIN 28.3 pg (26.0-34.0); MEAN CORPUSCULAR HGB CONC 32.7 G/dL (31.0-37.0); MEAN CORPUSCULAR VOLUME 87 fL (80-100); MONOCYTES # (AUTO) 0.4 K/uL (0.1-1.0); MONOCYTES % (AUTO) 4.1 % (2.0-9.0); NEUTROPHILS # (AUTO) 9.2 K/uL (1.8-7.7); PLATELET COUNT (AUTO) 139 K/uL (150-450); RED BLOOD CELL COUNT(AUTO) 3.38 MIL/uL (4.00-5.20); RED CELL DISTRIBUTION WIDTH 14.3 % (11.5-14.5)
[2016-11-11 07:17] LABS: NEUTROPHILS % (AUTO) 91.9 % (40.0-70.0)
[2016-11-11 07:26] LABS: ANION GAP 14 mmol/L (8-16); CALCIUM, TOTAL 8.4 mg/dL (8.8-10.5); CARBON DIOXIDE 22 mmol/L (22-29); CHLORIDE 115 mmol/L (98-107); CREATININE 1.72 mg/dL (0.60-1.30); GLOMERULAR FILTR. RATE CALC 33 mL/min (>60); POTASSIUM 3.5 mmol/L (3.5-5.1); SODIUM SERUM 151 mmol/L (136-145); UREA NITROGEN, BLOOD 22 mg/dL (7-18)
[2016-11-11 07:28] LABS: INR 1.1 (0.9-1.1); PROTHROMBIN TIME 11.7 SEC (9.4-11.6)
[2016-11-11 07:29] LABS: ABG A-A DIFF O2 95.9 mmHg (10-20.0); ABG BASE EXCESS -3.2 mmol/L (-2.0-3.0); ABG HCO3 22.5 mmol/L (22.0-26.0); ABG OXYHEMOGLOBIN 98.5 % (94.0-100.0); ABG PCO2 32 mmHg (35-45); TEMPERATURE, FAHRENHEIT, BG 98.6 FAHREN (96.0-98.6)
[2016-11-11] MEDS ORDERED: FUROSEMIDE 20 MG/2 ML VIAL IVP ONE ×3 (07:30→12:30)
[2016-11-11] MEDS: DOCUSATE SODIUM 100 MG CAPSULE PO SCH (07:31)
[2016-11-11 07:50] LABS: ALANINE AMINOTRANSFERASE 80 U/L (12-78); AMYLASE 28 U/L (25-115); ASPARTATE AMINOTRANSFERASE 137 U/L (15-37); BILIRUBIN,TOTAL 0.3 mg/dL (0.1-1.0); CREATINE KINASE MB 3.7 ng/mL (0-5); CREATINE KINASE, TOTAL 792 U/L (26-192); PHOSPHORUS 4.3 mg/dL (2.5-4.9); TOTAL PROTEIN, SERUM 6.4 g/dL (6.4-8.2)
[2016-11-11 08:00] VITALS: BP 188/98
[2016-11-11 08:29] LABS: ABG A-A DIFF O2 263.3 mmHg (10-20.0); ABG BASE EXCESS -3.6 mmol/L (-2.0-3.0); ABG HCO3 22.5 mmol/L (22.0-26.0); ABG OXYHEMOGLOBIN 99.2 % (94.0-100.0); ABG PCO2 27 mmHg (35-45); ABG PH 7.487 (7.350-7.450); TEMPERATURE, FAHRENHEIT, BG 98.6 FAHREN (96.0-98.6)
[2016-11-11] MEDS: PANTOPRAZOLE SODIUM 40 MG/VIAL IVP SCH (08:52)
[2016-11-11 10:22] LABS: APPEARANCE,URINE CLEAR (CLEAR); GLUCOSE, URINE (UA) NEGATIVE (NEGATIVE); KETONES,URINE NEGATIVE (NEGATIVE); LEUKOCYTE ESTERASE ,URINE NEGATIVE (NEGATIVE); OCCULT BLOOD,URINE MODERATE (NEGATIVE); PH,URINE 5.5 (5.0-8.0); PROTEIN,URINE NEGATIVE (NEGATIVE)
[2016-11-11 10:25] LABS: ADD UA MICROSCOPIC YES
[2016-11-11 10:37] LABS: RBC,URINE 0-2 /HPF (0-2); WBC,URINE 0-2 /HPF (0-5)
[2016-11-11 10:38] LABS: SQUAMOUS EPITHELIAL CELL,UR Few /LPF (None Seen)
[2016-11-11] MEDS: INSULIN REGULAR, HUMAN 100 UNITS in SODIUM CHLORIDE 0.9% 99 ML IV PRN ×2 (11:32)
[2016-11-11 12:00] VITALS: BP 175/95
[2016-11-11 12:01] LABS: ABG BASE EXCESS -4.6 mmol/L (-2.0-3.0); ABG HCO3 21.4 mmol/L (22.0-26.0); ABG OXYHEMOGLOBIN 98.5 % (94.0-100.0); ABG PCO2 30 mmHg (35-45); ABG PH 7.439 (7.350-7.450); TEMPERATURE, FAHRENHEIT, BG 98.6 FAHREN (96.0-98.6)
[2016-11-11] MEDS ORDERED: FUROSEMIDE 40 MG/4 ML VIAL IVP ONE (12:15)
[2016-11-11] MEDS ORDERED: MANNITOL 25%-12.5 GM/50 ML VIAL IVP ONE (12:15)
[2016-11-11] MEDS ORDERED: PHENYLEPHRINE 200 MG/D5%-WATER 250 ML IV PRN ×2 (12:15)
[2016-11-11 12:35] LABS: HEMATOCRIT 29.2 % (36-46); HEMOGLOBIN 9.6 g/dL (12.0-16.0); MEAN CORPUSCULAR HEMOGLOBIN 28.3 pg (26.0-34.0); MEAN CORPUSCULAR HGB CONC 32.9 G/dL (31.0-37.0); MEAN CORPUSCULAR VOLUME 86 fL (80-100); PLATELET COUNT (AUTO) 142 K/uL (150-450); RED BLOOD CELL COUNT(AUTO) 3.39 MIL/uL (4.00-5.20); RED CELL DISTRIBUTION WIDTH 14.2 % (11.5-14.5); WHITE BLOOD COUNT (AUTO) 10.9 K/uL (4.5-11.0)
[2016-11-11 12:37] LABS: INR 1.1 (0.9-1.1); PROTHROMBIN TIME 11.6 SEC (9.4-11.6)
[2016-11-11 12:41] LABS: ABG A-A DIFF O2 186.1 mmHg (10-20.0); ABG BASE EXCESS -2.7 mmol/L (-2.0-3.0); ABG HCO3 22.8 mmol/L (22.0-26.0); ABG OXYHEMOGLOBIN 98.8 % (94.0-100.0); ABG PCO2 31 mmHg (35-45); ABG PH 7.451 (7.350-7.450); TEMPERATURE, FAHRENHEIT, BG 98.6 FAHREN (96.0-98.6)
[2016-11-11 12:42] LABS: ALLEN TEST, BLOOD GAS Positive
[2016-11-11 13:01] LABS: BAND NEUTROPHILS % (MANUAL) 2 % (1-5); LYMPHOCYTES % (MANUAL) 10 % (22-44); TOTAL CELLS COUNTED 100
[2016-11-11 13:02] LABS: RBC MORPHOLOGY COMMENT NORMAL RBC MORPH
[2016-11-11 13:14] LABS: ALANINE AMINOTRANSFERASE 80 U/L (12-78); ALBUMIN 2.1 g/dL (3.4-5.0); AMYLASE 28 U/L (25-115); ANION GAP 13 mmol/L (8-16); ASPARTATE AMINOTRANSFERASE 147 U/L (15-37); BILIRUBIN,TOTAL 0.3 mg/dL (0.1-1.0); CARBON DIOXIDE 23 mmol/L (22-29); CHLORIDE 115 mmol/L (98-107); CREATINE KINASE MB 2.9 ng/mL (0-5); CREATINE KINASE, TOTAL 709 U/L (26-192); CREATININE 1.68 mg/dL (0.60-1.30); GLOMERULAR FILTR. RATE CALC 34 mL/min (>60); PHOSPHORUS 4.7 mg/dL (2.5-4.9); POTASSIUM 3.4 mmol/L (3.5-5.1); SODIUM SERUM 151 mmol/L (136-145); TOTAL PROTEIN, SERUM 5.6 g/dL (6.4-8.2); UREA NITROGEN, BLOOD 27 mg/dL (7-18)
[2016-11-11 13:25] LABS: LACTATE DEHYDROGENASE 834 U/L (81-234)
[2016-11-11 13:57] LABS: GLUCOSE,POINT OF CARE 242 MG/DL (70-110)
[2016-11-11 13:57] LABS: GLUCOSE,POINT OF CARE 247 MG/DL (70-110)
[2016-11-11 13:57] LABS: GLUCOSE,POINT OF CARE 274 MG/DL (70-110)
[2016-11-11 13:57] LABS: GLUCOSE,POINT OF CARE 247 MG/DL (70-110)
[2016-11-11] MEDS ORDERED: SODIUM CHLORIDE 0.9% 1,000 ML IV ONE (14:47)
[2016-11-11] MEDS: LEVOTHYROXINE SODIUM 200 MCG in SODIUM CHLORIDE 0.9% 500 ML IV SCH (15:00)
[2016-11-11 15:11] LABS: ABG A-A DIFF O2 410.9 mmHg (10-20.0); ABG HCO3 22.8 mmol/L (22.0-26.0); ABG OXYHEMOGLOBIN 98.8 % (94.0-100.0); ABG PCO2 26 mmHg (35-45); ABG PH 7.506 (7.350-7.450)
[2016-11-11 15:33] LABS: ABG A-A DIFF O2 365.9 mmHg (10-20.0); ABG BASE EXCESS -4.2 mmol/L (-2.0-3.0); ABG HCO3 21.4 mmol/L (22.0-26.0); ABG OXYHEMOGLOBIN 98.8 % (94.0-100.0); ABG PCO2 36 mmHg (35-45); ABG PH 7.382 (7.350-7.450); TEMPERATURE, FAHRENHEIT, BG 96.5 FAHREN (96.0-98.6)
[2016-11-11 16:20] LABS: ABG A-A DIFF O2 283.6 mmHg (10-20.0); ABG HCO3 17.9 mmol/L (22.0-26.0); ABG OXYHEMOGLOBIN 99.3 % (94.0-100.0); ABG PCO2 34 mmHg (35-45); ABG PH 7.324 (7.350-7.450)
[2016-11-11] MEDS ORDERED: PHENYLEPHRINE HCL 10 MG/ML VIAL IVP ONE (19:29)
[2016-11-11] MEDS ORDERED: EPHEDrine SULFATE 50 MG/ML VIAL IM ONE (19:29)
[2016-11-11] MEDS ORDERED: ROCURONIUM BROMIDE 10 MG/ML 5 ML VIAL IVP ONE (19:29)
[2016-11-11] MEDS ORDERED: 0.9% SODIUM CHLORIDE 10 ML VIAL IVP ONE (19:29)
[2016-11-12 05:07] LABS: GLUCOSE,POINT OF CARE 217 MG/DL (70-110)
[2016-11-12 05:07] LABS: GLUCOSE,POINT OF CARE 230 MG/DL (70-110)
[2016-11-12 05:07] LABS: GLUCOSE,POINT OF CARE 229 MG/DL (70-110)
[2016-11-12 05:11] LABS: GLUCOSE COMMENT 1 Received Meds; GLUCOSE,POINT OF CARE 214 MG/DL (70-110)
[2016-11-12 05:11] LABS: GLUCOSE,POINT OF CARE 239 MG/DL (70-110)
[2016-11-12 05:11] LABS: GLUCOSE,POINT OF CARE 240 MG/DL (70-110)
[2016-11-12 05:16] LABS: GLUCOSE COMMENT 1 Received Meds; GLUCOSE,POINT OF CARE 215 MG/DL (70-110)
[2016-11-12 05:52] LABS: GLUCOSE COMMENT 1 Received Meds; GLUCOSE,POINT OF CARE 223 MG/DL (70-110)
[2016-11-12 05:52] LABS: GLUCOSE,POINT OF CARE 215 MG/DL (70-110)
[2016-11-12 06:18] LABS: GLUCOSE,POINT OF CARE 198 MG/DL (70-110)
[2016-11-12] MEDS ORDERED: VANCOMYCIN HCL 1 GM/D5% WATER 200 ML IV SCH (08:00)
[2016-11-12 19:41] LABS: GLUCOSE COMMENT 1 Received Meds; GLUCOSE,POINT OF CARE 208 MG/DL (70-110)
[2016-11-12 19:41] LABS: GLUCOSE COMMENT 1 Received Meds; GLUCOSE,POINT OF CARE 201 MG/DL (70-110)
== END 2016-11-11 19:30 | disposition expired | DRG 710 ==
LOC: EMS 14:34 → EDBD 14:34 → ICU 15:33
PROVIDERS: ADMIT Internal Medicine; ATTEND Internal Medicine
PROC: 5A1955Z Respiratory Ventilation, Greater than 96 Consecutive Hours (ICD-10-PCS; principal; 2016-11-05)
PROC: 0BH17EZ Insertion of Endotracheal Airway into Trachea, Via Natural or Artificial Opening (ICD-10-PCS; 2016-11-05)
PROC: 04HY32Z Insertion of Monitoring Device into Lower Artery, Percutaneous Approach (ICD-10-PCS; 2016-11-05)
PROC: 5A12012 Performance of Cardiac Output, Single, Manual (ICD-10-PCS; 2016-11-05)
PROC: 06HY33Z Insertion of Infusion Device into Lower Vein, Percutaneous Approach (ICD-10-PCS; 2016-11-10)
PROC: B54BZZA Ultrasonography of Right Lower Extremity Veins, Guidance (ICD-10-PCS; 2016-11-10)
PROC: 0BJ08ZZ Inspection of Tracheobronchial Tree, Via Natural or Artificial Opening Endoscopic (ICD-10-PCS; 2016-11-10)
PROC: 0BC38ZZ Extirpation of Matter from Right Main Bronchus, Via Natural or Artificial Opening Endoscopic (ICD-10-PCS; 2016-11-10)
DX: A41.9 Sepsis, unspecified organism (principal); I21.3 ST elevation (STEMI) myocardial infarction of unspecified site; I46.9 Cardiac arrest, cause unspecified; J96.00 Acute respiratory failure, unspecified whether with hypoxia or hypercapnia; G93.40 Encephalopathy, unspecified; E23.2 Diabetes insipidus; J69.0 Pneumonitis due to inhalation of food and vomit; G93.1 Anoxic brain damage, not elsewhere classified; D68.9 Coagulation defect, unspecified; E87.1 Hypo-osmolality and hyponatremia; E66.9 Obesity, unspecified; E87.2 Acidosis; K72.00 Acute and subacute hepatic failure without coma; N17.9 Acute kidney failure, unspecified; T68.XXXA Hypothermia, initial encounter; M62.82 Rhabdomyolysis; B96.20 Unspecified Escherichia coli [E. coli] as the cause of diseases classified elsewhere; E87.0 Hyperosmolality and hypernatremia; F32.9 Major depressive disorder, single episode, unspecified; I48.91 Unspecified atrial fibrillation; T79.7XXA Traumatic subcutaneous emphysema, initial encounter; E11.65 Type 2 diabetes mellitus with hyperglycemia; H57.04 Mydriasis; R57.9 Shock, unspecified; F15.90 Other stimulant use, unspecified, uncomplicated; L53.8 Other specified erythematous conditions; Z99.11 Dependence on respirator [ventilator] status; Z68.26 Body mass index [BMI] 26.0-26.9, adult; J81.1 Chronic pulmonary edema; Z79.4 Long term (current) use of insulin; Z79.899 Other long term (current) drug therapy
CPT/HCPCS: 31500; 31624; 51702; 70450; 71250; 71275; 72125; 78606; 82248; 82575; 82805; 82962; 82977; 83036; 83605; 83615; 83721; 83735; 83930; 83935; 84100; 84132; 84295; 84588; 85007; 87015; 87040; 87070; 87081; 87086; 87101; 87205; 87220; 93005; 93306; 94002; 94003; 94640; 96361; 96365; 96374; 96375; 99291; A9521; C9113; G0480; G0481; J1815; J1940; J2310; J2370; J2543; J2597; J2930; J3370; J3475; J3480; J3490; J7030; J7040; J7050; J7060